=== PATIENT | male | born 2005 | race Caucasian/White ===

== ENCOUNTER 2024-10-01 15:37 | Emergency (ER) | payer OTHER ==
[2024-10-01] MEDS ORDERED: Sodium Chloride 0.9% 10 ML Syringe FLUSH PRN (15:56)
[2024-10-01 16:07] LABS: BASOPHILS PERCENT AUTO 0.2 % (0.0-1.0); EOSINOPHILS PERCENT AUTO 1.1 % (1.0-3.0); HEMATOCRIT 46.6 % (40.0-54.0); HEMOGLOBIN 16.2 g/dL (14.0-18.0); LYMPHOCYTES PERCENT AUTO 12.8 % (20.5-50.1); MEAN CORPUSCULAR HEMOGLOBIN 29.8 pg (27.0-34.0); MEAN CORPUSCULAR HGB CONC 34.8 g/dL (33.0-35.0); MEAN CORPUSCULAR VOLUME 85.8 fL (80-100); MONOCYTES PERCENT AUTO 6.7 % (2-8); NEUTROPHILS PERCENT AUTO 79.2 % (42.2-75.2); PLATELET COUNT,PLT 212 10^3/uL (150-450); RED BLOOD CELL COUNT 5.43 10^6/uL (4.6-6.2); WHITE BLOOD CELL COUNT,WBC 9.9 10^3/uL (5.0-10.0)
[2024-10-01 16:19] LABS: INR 1.1 (0.9-1.2); PROTHROMBIN TIME 11.6 SEC (9.0-12.0); PTT,PARTIAL THROMBOPLSTIN TIME 20.7 SEC (22.0-34.0)
[2024-10-01 16:23] LABS: A/G RATIO 1.4; ALBUMIN 4.6 g/dL (3.4-5.0); ANION GAP 12.6 mEq/L (7-13); BILIRUBIN TOTAL 0.8 mg/dL (0.2-1.0); CALCIUM 9.5 mg/dL (8.5-10.1); CREATININE 1.41 mg/dL (0.70-1.30); EST CRCL DRUG DOSING (CG) 84.27 mL/min; MAGNESIUM 1.9 mg/dL (1.8-2.4); POTASSIUM,K 3.6 mmol/L (3.5-5.1); PROTEIN TOTAL,TP 7.8 g/dL (6.4-8.2)
[2024-10-01] MEDS ORDERED: Sodium Chloride 0.9% 1,000 ML IV ONE (16:25)
[2024-10-01] MEDS: Lactated Ringers 1,000 ML IV ONE (16:31)
[2024-10-01] MEDS ORDERED: Iopamidol 612 MG/ML 100 ML Bottle IVPUSH ONE (16:38)
[2024-10-01] MEDS: Ondansetron 4 MG/2 ML SDV IVPUSH ONE (16:41)
[2024-10-01 19:50] LABS: APPEARANCE,URINE CLEAR (CLEAR); BILIRUBIN,URINE NEGATIVE (NEGATIVE); COLOR,URINE YELLOW (YELLOW); GLUCOSE,URINE NEGATIVE (NEGATIVE); KETONES,URINE 15 (NEGATIVE); LEUKOCYTE ESTERASE,URINE NEGATIVE (NEGATIVE); NITRITE,URINE NEGATIVE (NEGATIVE); OCCULT BLOOD,URINE NEGATIVE (NEGATIVE); PROTEIN,URINE TRACE (NEGATIVE)
[2024-10-01 19:52] LABS: AMPHETAMINES,URINE NEGATIVE (NEGATIVE); BARBITURATES,URINE NEGATIVE (NEGATIVE); BENZODIAZEPINE,URINE NEGATIVE (NEGATIVE); MDMA (ECSTASY), URINE NEGATIVE (NEGATIVE); METHADONE,URINE NEGATIVE (NEGATIVE); METHAMPHETAMINES,URINE NEGATIVE (NEGATIVE); OPIATES,URINE NEGATIVE (NEGATIVE); OXYCODONE,URINE NEGATIVE (NEGATIVE); PHENCYCLIDINE,URINE NEGATIVE (NEGATIVE); TCA,URINE NEGATIVE (NEGATIVE)
[2024-10-01 20:00] LABS: EPITHELIAL CELLS,URINE RARE /HPF (NOT SEEN); RBC,URINE 0-5 /HPF (0-5); WBC,URINE 0-5 /HPF (0-5/HPF)
[2024-10-01 20:01] LABS: BACTERIA,URINE FEW /HPF (0-FEW/HPF); MUCUS,URINE FEW /LPF (NOT SEEN)
== END 2024-10-01 19:52 ==
LOC: DL.ED 15:37
DX: S06.0X1A Concussion with loss of consciousness of 30 minutes or less, initial encounter (principal); M79.622 Pain in left upper arm; M79.621 Pain in right upper arm; R20.2 Paresthesia of skin; R42 Dizziness and giddiness; Z88.2 Allergy status to sulfonamides; Z88.8 Allergy status to other drugs, medicaments and biological substances; W50.0XXA Accidental hit or strike by another person, initial encounter; Y93.67 Activity, basketball
CPT/HCPCS: 36415; 70450; 71045; 72125; 72170; 80053; 80305; 80307; 81001; 82550; 83735; 84484; 85025; 85610; 85730; 93005; 96361; 96374; 99285; J2405; J7120